=== PATIENT | male | born 1970 | race Caucasian/White ===

== ENCOUNTER 2016-09-29 22:05 | Emergency (ER) | payer OTHER ==
[~2016-09-29] VITALS: Ht 185.4 cm; Wt 107.0 kg
[2016-09-29 23:07] LABS: HEMATOCRIT 48.5 % (38.0-50.0); MCH 31.8 PG (29.0-34.0); MCHC 35.7 G/DL (30.0-36.0); MCV 89.2 FL (86-99); MEAN PLAT.VOLUME 9.6 uM^3 (9.0-12.4); PLATELET COUNT 216 K/uL (156-360); RBC DIS.WIDTH-CV 11.4 % (11.8-14.6); RBC DIS.WIDTH-SD 36.5 % (39-53); RED BLOOD COUNT 5.44 M/uL (4.00-5.50); WHITE BLOOD COUNT 11.5 K/uL (4.1-10.2)
[2016-09-29 23:17] LABS: CHLORIDE 106 mEq/L (99-109); POTASSIUM 3.8 mEq/L (3.7-5.4); SODIUM 143 mEq/L (136-147)
[2016-09-29 23:19] LABS: GLUCOSE 106 mg/dL (70-99)
[2016-09-29 23:20] LABS: ANION GAP 10 MEQ/L (2-14)
[2016-09-29 23:21] LABS: TOTAL BILIRUBIN 0.9 mg/dL (0.0-1.0)
[2016-09-29 23:22] LABS: ALKALINE PHOSPHATASE 62 IU/L (3-129)
[2016-09-29 23:23] LABS: GFR ESTIMATE (CALCULATED) > 59 mL/min/
[2016-09-29 23:24] LABS: UREA NITROGEN (BUN) 13 mg/dL (9-23)
[2016-09-29 23:45] LABS: ADD MIUA? YES; BILIRUBIN NEGATIVE; BLOOD NEGATIVE; COLOR YELLOW ((YELLOW)); GLUCOSE (STRIP) NEGATIVE; KETONES NEGATIVE; LEUKOCYTES NEGATIVE; NITRITE NEGATIVE; PROTEIN (STRIP) 30; SPECIFIC GRAVITY 1.025 (1.000-1.030); UROBILINOGEN 0.2 MG/DL (0.2-1.0)
[2016-09-29 23:49] LABS: BACTERIA RARE /HPF; EPITHELIAL CELLS RARE /HPF; HYALINE CASTS 0-5 /LPF; MUCUS 4+ /LPF; RED BLOOD CELLS 0-5 /HPF (0-5); UCUL ADDED? NO; WHITE BLOOD CELLS 0-5 /HPF (0-5)
[2016-09-29 23:54] LABS: LIPASE 13 U/L (1.0-51.0)
[2016-09-30] MEDS ORDERED: BENTYL20 MG PO (00:49)
[2016-09-30] MEDS ORDERED: MOTRIN800 MG PO (00:49)
[2016-09-30] MEDS ORDERED: ZOFRAN ODT4 MG PO (00:49)
[2016-09-30 01:05] VITALS: BP 124/92
== END 2016-09-30 01:07 | disposition home or self-care (01) ==
LOC: RME 22:05 → EME 22:05 → RME 09-30 01:07
DX: R10.13 Epigastric pain (principal); R11.2 Nausea with vomiting, unspecified; K21.9 Gastro-esophageal reflux disease without esophagitis; G47.30 Sleep apnea, unspecified
CPT/HCPCS: 74177; 80053; 81003; 83690; 85027; 93005; 99281; 99285; J0500; J1885; J2405; J7030